=== PATIENT | male | born 1985 | race Caucasian/White ===

== ENCOUNTER → 2023-01-21 15:39 | Outpatient (CLI) | payer OTHER, SELFPAY ==
--- NOTE | 2023-01-21 | DI.US.S_ITS ---
PROCEDURE: US SCROTUM INDICATIONS: SCROTAL VARICES TECHNIQUE: Real-time focused scanning was performed of the inguinal region, with image documentation. COMPARISON: None. FINDINGS: The right testicle measures 4.3 x 2.0 x 3.6 cm. There is a homogeneous echotexture. No masses. Arterial and venous pressures are normal. Trace right hydrocele. Varices are present with the veins of the pampiniform plexus measuring up to 3.3 mm. The left testicle measures 4.2 x 2.0 x 3.1 cm. There is homogeneous echotexture. No masses. Arterial and venous pressures are normal. Varices are present with the veins of the pampiniform plexus measuring up to 3.5 mm. The epididymi bilaterally are normal. IMPRESSION: 1. Bilateral varicoceles. 2. Otherwise normal scrotal ultrasound. Dictated by: Manuel Arguelles M.D. on 01/21/2023 at 16:37 Approved by: Manuel Arguelles M.D. on 01/21/2023 at 16:43
== END ==
PROVIDERS: PCP Physician Assistant; Referring Provider Physician Assistant; Visit Provider Physician Assistant
DX: I86.1 Scrotal varices (principal)
CPT/HCPCS: 76870